=== PATIENT | male | born 1960 | race Caucasian/White ===

== ENCOUNTER → 2016-04-07 | Outpatient (CLI) | payer OTHER ==
[~2016-04-07] MED LIST: ASPI81TA16; CEPH-331 PO; CLOP75TA3; FENO134C; IBUP1TAB14 PO; LISI1TAB6; METF-473 PO; METF100P3 MC; OXYC-109 PO; ROSU20TA PO; SULF1TAB35 PO
[2016-04-07 10:08] LABS: ANION GAP 14.8 MEQ/L (3-15)
--- NOTE | 2016-04-07 14:32 | Diagnostic Imaging Report ---
PROCEDURE: CT chest with contrast only. TECHNIQUE: Multiple contiguous axial images were obtained through the chest after administration of intravenous contrast. INDICATION: Two-month history of persistent cough. FINDINGS: There is a soft tissue mass at the level of the left hilum with direct extension into the mediastinum most noticeably in the subcarinal region. In aggregate, this area measures approximately 6.6 x 4.6 cm. There is some attenuation and encasement of the left hilar bronchovascular structures. This extends into the suprahilar region above the level of the left main pulmonary artery. The lower lobe bronchus is significantly narrowed. There is perhaps minimal airspace disease about the lingular aspect of the left upper lobe. There are slight asymmetric areas of nodularity within the lingula. More peripherally, slightly more focal nodule measures approximately 9 x 6 mm. More centrally, nodule measures 7 mm. Soft tissue mass does extend across midline below the right subcarinal region. AP window enlarged lymph node measures 20 x 12 mm. Additional precarinal lymph nodes measuring less than 1 cm. Right lung is relatively clear. Patient is post sternotomy. Heart size upper limits of normal. Slight left ventricular hypertrophy. Coronary artery calcification. Thoracic aortic contour unremarkable. 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 The upper abdominal structures are not well included. Visualized portions demonstrate questionable nodularity left adrenal gland partially visualized. Osseous structures without acute bony abnormality. Very slight diastases. Midline sternotomy. Hypertrophic change at the first ribs. IMPRESSION: 1. Left hilar mass, worrisome for neoplasm. Bronchoscopy would be recommended for followup. 2. This does result in some significant attenuation of the left hilar bronchovascular structures. This is most noticeable involving the left lower lobe pulmonary bronchus. 3. Minimal wispy-like densities about the left perihilar region and lingular aspect of the left upper lobe may be reflective of mild postobstructive pneumonitis. Small areas of nodularity; The possibility of a satellite nodule is not excluded. 4. Pathologically enlarged AP window lymph node. Report faxed to Dr. Nieto(Mia) at [phone] at 2:34 p.m. 04/07/2015/trish Dictated by: Dictated on workstation # [id number]
== END ==
LOC: RAD 09:14
PROVIDERS: ATTEND Family Medicine
DX: R05 Cough (principal); E11.9 Type 2 diabetes mellitus without complications; R91.8 Other nonspecific abnormal finding of lung field
CPT/HCPCS: 36415; 71260; 80048; 83036; Q9967